=== PATIENT | male | born 1980 | race Caucasian/White ===

== ENCOUNTER 2016-12-08 22:18 | Inpatient (IN) ==
--- NOTE | 2016-12-08 22:32 | ED EKG INTERP ---
EKG Interpretation - EKG Time of EKG reading by physician:: 22:23 EKG Read and Signed by:: Randall Everett EKG Interpretation (*Must complete 3 of following elements*): Abnormal ( Incomplete RBBB) Rate: 118 Rhythm: Sinus tachycardia Attestation - Scribe Verification/Attestation Scribe:: Davis Calderon Acting as Scribe for:: Randall Everett Scribe documention review:: This chart was documented by a scribe and accurately reflects the service the provider performed and the decisions made by the provider.
[2016-12-08] MEDS ORDERED: ATIVAN IV ONE (22:45)
[2016-12-08] MEDS ORDERED: LOPRESSOR IV ONE (22:45)
[2016-12-08] MEDS ORDERED: LASIX IV ONE ×2 (22:45→22:46)
[2016-12-08] MEDS ORDERED: LABETALOL IV ONE (22:58)
[2016-12-08 23:01] LABS: MANUAL DIFF NEEDED? NO
[2016-12-08 23:04] LABS: BASO% 0.4 % (0.0-0.8); EOS# 0.46 X1000 (0.0-0.7); EOS% 2.7 % (0.0-10.0); HEMOGLOBIN 15.1 g/dL (14.0-18.0); IMM GRAN# 0.07 X1000 (0.0-0.04); IMM GRAN% 0.4 % (0.0-0.5); LYMPH# 6.38 X1000 (1.2-3.4); LYMPH% 37.4 % (20.5-51.1); MCH 28.8 PG (27-31); MCHC 34.3 g/dL (33-37); MPV 10.4 FL (7.4-10.4); NEUT% 52.1 % (42.2-75.2); PLT 338 X1000 (130-400); RBC 5.24 XMIL (4.7-6.1)
--- NOTE | 2016-12-08 23:09 | PROVIDER DOCUMENTATION ---
HPI-Chest Pain - General Chief Complaint: Shortness of Breath Stated Complaint: "TROUBLE BREATHING" Time Seen by Provider: 12/08/16 22:32 Source: patient Allergies/Adverse Reactions: Patient Allergies Allergy/AdvReac Type Severity Reaction Status Date / Time amoxicillin Allergy Mild HIVES Verified 12/08/16 23:30 levofloxacin [From Levaquin] Allergy Mild HIVES Verified 12/08/16 23:30 clarithromycin AdvReac Severe VOMITING Verified 12/08/16 23:30 Home Medications: Home Medication List Medication Instructions Recorded Confirmed Last Taken Type Lisinopril 10 mg PO DAILY #30 tablet 11/25/15 12/08/16 12/15/15 06:00 Rx Metformin [Glucophage] 500 mg PO BID #60 tablet 11/25/15 12/08/16 12/14/15 21: 00 Rx - History of Present Illness-CP Nature of Presenting Problem: Pt is a 36 yom who presents to ER with CC of shortness of breath and chest pain. Pt reports that he had has his chest pain x3 days and his sob since this am. Pt reports that his chest pain is on his L side and radiates down his arm. On exam, pt has intentional tremors and is hyperventilating. Pt reports he has hx of "severe panic attacks," HTN, diabetes, neuropathy, seizures, polyps, had a light RI last year, and a CVA (L side paralysis; no sensory deficits). Location: reports: other (L side) Chest Pain Radiation: reports: arms (L) Quality of Pain: reports: tightness Severity in ED: moderate Onset/Duration: 3 days ago Timing: still present, getting worse Associated Symptoms: reports: shortness of breath. denies: abdominal pain, back pain, diaphoresis, dizziness, edema, fatigue, heartburn, nausea, swelling/ lump in chest, syncope, vomiting, weakness Nitro Today/Relief: no nitro taken today Aspirin Treatment Today: no aspirin today Review of Systems - Adult - REVIEW OF SYSTEMS - ADULT Constitutional: denies: chills, fever, fatique, night sweats, weight gain, weight loss Eyes: reports: no symptoms reported Ears, Nose, Mouth & Throat: reports: no symptoms reported Cardiovascular: reports: chest pain. denies: edema, heart murmur, irregular heart rate, orthopnea, palpitations, poor circulation, PND, syncope Respiratory: reports: shortness of breath. denies: chronic cough, cough, dyspnea on exertion, excessive sputum production, hemoptysis, pleurisy, wheezing Gastrointestinal: reports: no symptoms reported Genitourinary: reports: no symptoms reported Musculoskeletal: reports: no symptoms reported Integumentary: reports: no symptoms reported Neurological: reports: numbness (L arm), tremors (intentional). denies: ataxia , dizziness/vertigo, headache/migraines, loss of balance, paresthesia, seizure, slurred speech, syncope Psychiatric: reports: anxiety, panic attacks. denies: anti-depressant use, alcohol/drug dependence, depression, emotional problems, insomnia, suicidal thoughts Endocrine: reports: no symptoms reported Hematologic/Lymphatic: reports: no symptoms reported Allergic/Immunologic: reports: no symptoms reported All Other Systems: Reviewed and Negative Past History - Adult - PAST MEDICAL HISTORY-ADULT Review of Records: reports: Nursing Assessment Review, Medications Reviewed Cardiovascular: reports: HTN, hyperlipidemia, other ("hole in back of heart") Respiratory: reports: sleep apnea Gastrointestinal: reports: ulcer Genitourinary: reports: kidney stones Neurological: reports: other (SZ when is stressed) Psychiatric: reports: anxiety, depression Endocrine/Immune: reports: Diabetes - PRIOR SURGERIES/PROCEDURES Surgical/Procedure History: reports: hernia repair, orthopedic (extremity) - PRIOR HOSPITALIZATIONS Prior Hospitalizations: reports: for similar symptoms - IMMUNIZATION STATUS Childhood Immunizations: See Nurse Assessment Flu Vaccine: See Nurse Assessment Physical Exam-General - PHYSICAL EXAM-ADULT Initial Vital Signs Reviewed: Yes - CONSTITUTIONAL General Appearance: appears well, alert, moderate distress, obese, anxious. negative: no apparent distress, mild distress - RESPIRATORY Respiratory: chest non-tender, lungs clear, normal breath sounds, no pleuratic chest pain, no respiratory distress, no accessory muscle use. negative: respiratory distress, decreased breath sounds, accessory muscle use, wheezing - CARDIOVASCULAR Cardiovascular: normal peripheral pulses, regular rate, rhythm. negative: bradycardia, tachycardia, irregularly irregular - CHEST (BREASTS) Chest/Breast: no masses/lumps, no tenderness. negative: nipple discharge, tenderness, mass/lump noted - GASTROINTESTINAL (ABDOMEN) Abdominal Exam: normal bowel sounds, non tender, soft. negative: abnormal bowel sounds, distended, tenderness, mass - MUSCULOSKELETAL Back Exam: no CVA tenderness, no vertebral tenderness. negative: CVA tenderness , decreased range of motion, muscle spasm, swelling, vertebral tenderness Extremity: normal range of motion, non-tender, normal gait. negative: deformity , erythema, inflammation, pedal edema, swelling, tenderness - NEUROLOGIC Neurologic: grossly normal, no motor/sensory deficits. negative: facial droop, focal weakness, motor weakness, sensory deficit - PSYCHIATRIC Psych/Mental Status: normal thought content, normal thought process, oriented x 3, anxious, disheveled. negative: normal mood/affect, disoriented x 3, depressed affect, paranoid, tearful Progress - PLAN OF CARE/RESULTS Progress/Plan/Lab Results: Vital Signs - 24 hr 12/08/16 12/08/16 12/08/16 22:26 23:28 23:35 Temperature 98.1 F Pulse Rate 118 H 107 H 93 H Respiratory 20 22 20 Rate Blood Pressure 228/124 206/126 193/113 O2 Sat by Pulse 100 100 97 Oximetry Orders Category Date Time Status Cardiac Monitoring DIRECTED Care 12/08/16 22:32 Active Saline Loc NOW Care 12/08/16 22:32 Active CHEST-1 VIEW [RAD] Stat Exams 12/08/16 22:32 Taken BLOOD CULTURE [BLDCUL] Stat Lab 12/08/16 23:47 Ordered CBC WITH ELECTRONIC DIFF [HEME] Stat Lab 12/08/16 22:40 Completed CK PROFILE [SP CHEM] Stat Lab 12/08/16 22:40 Completed COMPREHENSIVE METABOLIC PANEL [CHEM] Stat Lab 12/08/16 22:40 Completed LACTATE, PLASMA [CHEM] Stat Lab 12/08/16 23:47 Uncollected MAGNESIUM [CHEM] Stat Lab 12/08/16 22:40 Completed PRO B-NATRIURETIC PEPTIDE Stat Lab 12/08/16 22:40 Completed PROTIME WITH INR [COAG] Stat Lab 12/08/16 22:40 Completed PTT [COAG] Stat Lab 12/08/16 22:40 Completed TROPONIN T Stat Lab 12/08/16 22:40 Completed Amlodipine [Norvasc] Med 12/08/16 23:47 Discontinued 10 mg PO NOW ONE CefTRIAXONE 1 GM/NS [Rocephin 1 gm/Ns] 50 ml Med 12/08/16 23:47 Discontinued IV NOW Furosemide [Lasix] Med 12/08/16 22:46 Discontinued 20 mg IV NOW ONE Furosemide [Lasix] Med 12/08/16 22:45 Discontinued 40 mg IV NOW ONE LISINOpril [Prinivil] Med 12/08/16 23:47 Discontinued 10 mg PO NOW ONE Labetalol Med 12/08/16 22:58 Discontinued 20 mg IV NOW ONE Lorazepam [Ativan] Med 12/08/16 22:45 Discontinued 1 mg IV NOW ONE Metoprolol [Lopressor] Med 12/08/16 22:45 Discontinued 5 mg IV NOW ONE EKG [EKG] Stat Ther 12/08/16 22:20 Ordered EKG [EKG] Stat Ther 12/08/16 22:32 Ordered Laboratory Tests 12/08/16 12/08/16 12/08/16 22:40 22:40 22:40 WBC 17.05 H RBC 5.24 Hgb 15.1 Hct 44.0 MCV 84.0 MCH 28.8 MCHC 34.3 RDW Std Deviation 13.0 Plt Count 338 MPV 10.4 Immature Gran % (Auto) 0.4 Neut % (Auto) 52.1 Lymph % (Auto) 37.4 Menard % (Auto) 7.0 Eos % (Auto) 2.7 Baso % (Auto) 0.4 Immature Gran # (Auto) 0.07 H Neut # (Auto) 8.87 H Lymph # (Auto) 6.38 H Menard # (Auto) 1.20 H Eos # (Auto) 0.46 Baso # (Auto) 0.07 PT INR PTT (Actin FS) Sodium 138 Potassium 3.5 Chloride 98 Carbon Dioxide 25 Anion Gap 15 BUN 11 Creatinine 1.1 Estimated GFR/1.73 m2 > 60 BUN/Creatinine Ratio 10 Glucose 231 H Calculated Osmolality 282 Calcium 9.1 Magnesium 1.7 Total Bilirubin 0.32 AST 23 ALT 47 H Alkaline Phosphatase 128 H Creatine Kinase 237 H Creatine Kinase Index 1.5 CK-MB (CK-2) 3.48 Troponin T Pls-F-Qitnnnisqkx Pept 16 Total Protein 8.0 Albumin 4.0 Globulin 4.0 Albumin/Globulin Ratio 1.0 12/08/16 12/08/16 22:40 22:40 WBC RBC Hgb Hct MCV MCH MCHC RDW Std Deviation Plt Count MPV Immature Gran % (Auto) Neut % (Auto) Lymph % (Auto) Menard % (Auto) Eos % (Auto) Baso % (Auto) Immature Gran # (Auto) Neut # (Auto) Lymph # (Auto) Menard # (Auto) Eos # (Auto) Baso # (Auto) PT 9.9 INR 0.97 PTT (Actin FS) 22.2 Sodium Potassium Chloride Carbon Dioxide Anion Gap BUN Creatinine Estimated GFR/1.73 m2 BUN/Creatinine Ratio Glucose Calculated Osmolality Calcium Magnesium Total Bilirubin AST ALT Alkaline Phosphatase Creatine Kinase Creatine Kinase Index CK-MB (CK-2) Troponin T < 0.010 Meu-A-Osywbiyqbnq Pept Total Protein Albumin Globulin Albumin/Globulin Ratio - XRAY 1 XRAY: Bilateral XRAY Study: Chest (Increased interstitial markings) Impression: See EMR Report XRAY Interpretation: See report - CONSULTS/PCP/HOSPITALIST Notification #1 *Consult/PCP/Hospitalist*: Dr. Lujan (Hospitalist) Time Discussed: 02:00 Consult Disposition: Admit Departure - Departure Time of Disposition Order: 01:59 DIAGNOSIS: Shortness of breath, Hypertensive urgency Disposition: ADMITTED INPATIENT 09 Certified Medical Emergency: Emergent Condition: Stable Additional Instructions: ED Follow Up Instructions: You have been treated by a care provider in the Emergency Department. These instructions are being provided to you so you can have an understanding of how to care for yourself upon discharge. Upon discharge from the Emergency Department, you are responsible for making arrangements for follow-up care by a physician of your choice. Take all prescribed medications as directed. Return to the Emergency Department immediately for any new or worsening symptoms. You may call the Physician Referral phone number at [phone] to obtain a list of Physicians who are taking new patients. Referrals: None,PCP [Primary Care Provider] - Attestation - Scribe Verification/Attestation Scribe:: Davis Calderon Acting as Scribe for:: Randall Everett Scribe documention review:: This chart was documented by a scribe and accurately reflects the service the provider performed and the decisions made by the provider.
[2016-12-08 23:28] LABS: AGAP 15; ALKALINE PHOSPHATASE 128 U/L (32-122); BUN 11 mg/dL (8-22); CALCIUM 9.1 mg/dL (8.8-10.2); CHLORIDE 98 mmol/L (98-107); COSMO 282; GOT 23 U/L (10-34); GPT 47 U/L (10-44); MAGNESIUM 1.7 mg/dL (1.5-2.7); POTASSIUM 3.5 mmol/L (3.5-5.1); SODIUM 138 mmol/L (136-145); TCO2 25 mmol/L (25-35); TOTAL BILIRUBIN 0.32 mg/dL (0.20-1.00)
[2016-12-08 23:40] LABS: CK PROFILE 237 U/L (24-204)
[2016-12-08 23:46] LABS: PROTIME 9.9 Seconds (9.2-11.7); PTT 22.2 Seconds (22.0-36.0)
[2016-12-08 23:47] LABS: INR 0.97
[2016-12-08] MEDS ORDERED: PRINIVIL PO ONE (23:47)
[2016-12-08] MEDS ORDERED: NORVASC PO ONE (23:47)
[2016-12-08] MEDS ORDERED: ROCEPHIN 1 GM/NS 50 ML IV ONE (23:47)
[2016-12-09 00:21] LABS: CK INDEX 1.5 (0.0-2.5); CK-MB 3.48 ng/mL (0.0-5.0)
[2016-12-09] MEDS ORDERED: NORVASC ONE (02:05)
[2016-12-09] MEDS ORDERED: ATIVAN IV ONE (02:49)
[2016-12-09] MEDS ORDERED: CATAPRES PO ONE (02:49)
[2016-12-09] MEDS ORDERED: TYLENOL PO PRN (05:55)
[2016-12-09] MEDS ORDERED: VASOTEC IV PRN (05:55)
[2016-12-09] MEDS ORDERED: ZOFRAN IV PRN (05:55)
[2016-12-09] MEDS: HUMULIN R SUBQ SCH ×4 (07:00→20:55)
--- NOTE | 2016-12-09 08:08 | HISTORY AND PHYSICAL ---
CHIEF COMPLAINT: Chest pain. HISTORY OF PRESENTING ILLNESS: A 36-year-old male with a history of coronary artery disease, diabetes mellitus type 2, hypertension, GERD, who presented to the emergency department with 3 days history of having intermittent chest pain and shortness of breath. He described the chest pain as pressure-like with radiation to his left arm. He states the symptoms were worsening and, subsequently, he had come to the emergency department. In the ER, he was evaluated and due to his presenting symptoms, it was thought that he would need hospitalization for further management. At the time of my examination, he denied any headache, vision changes, nausea, vomiting, diarrhea, hemoptysis, melena, or weight changes, but complained of chest pain and shortness of breath. PAST MEDICAL HISTORY: Coronary artery disease, CVA, diabetes mellitus type 2, hypertension, GERD. PAST SURGICAL HISTORY: Left knee surgery. Right shoulder surgery. ALLERGIES: Amoxicillin, levofloxacin, clarithromycin. CURRENT MEDICATIONS: As listed in MAR. SOCIAL HISTORY: He denies any history of smoking, alcohol, or illicit drug use. FAMILY HISTORY: Positive for coronary artery disease in mother. REVIEW OF SYSTEMS: Twelve-point review of systems listed as in HPI. Other systems negative. PHYSICAL EXAMINATION: GENERAL: Cooperative, friendly male. He is resting comfortably now. VITAL SIGNS: Temperature 98.1 degrees, pulse 118, respirations 20, blood pressure 206/126. HEENT: Atraumatic, normocephalic. Extraocular movements intact. PERRLA. NECK: Supple. CHEST: Clear to auscultation. CARDIOVASCULAR: Regular rate and rhythm. ABDOMEN: Soft. Positive bowel sounds. EXTREMITIES: No edema. NEUROLOGIC: He is awake, alert, oriented x3. GENITOURINARY: No bladder distention. SKIN: Warm. LABORATORIES AND STUDIES: WBC 17.05. Hemoglobin 15.1, hematocrit 44.0, platelets 338,000. Sodium 138, potassium 3.5, chloride 98, CO2 is 25. BUN is 11, creatinine is 1.1, glucose is 231. ALT is 47. Alkaline phosphatase is 128. Creatine kinase is 237. ASSESSMENT: A 36-year-old male with a history of coronary artery disease, diabetes mellitus type 2, hypertension, and gastroesophageal reflux disease presented to the emergency department with 3 days history of having chest pain. We will place patient for observation for further evaluation and management. 1. Chest pain. 2. Hypertension, uncontrolled. 3. GERD. 4. Leukocytosis. 5. Abnormal LFTs. PLAN: 1. We will admit the patient to medical floor with telemetry. 2. Continue cardiac workup. Check EKG, serial cardiac enzymes. Have patient continue on aspirin. Will use sublingual nitroglycerin and morphine p.r.n. chest pain. 3. We will monitor blood pressure closely and resume antihypertensive agents. 4. We will start patient on PPI. 5. Check blood cultures. Start patient on empiric antibiotics. 6. We will check an abdominal ultrasound and check a hepatitis profile. 7. We will put patient on DVT prophylaxis with SCDs. 8. We will continue to follow and reassess.
[2016-12-09] MEDS: PRILOSEC PO SCH (08:58)
[2016-12-09] MEDS: ASPIRIN PO SCH (09:03)
[2016-12-09 09:22] LABS: MANUAL DIFF NEEDED? NO
[2016-12-09 09:42] LABS: AGAP 13; ALBUMIN 3.7 g/dL (3.5-5.0); ALKALINE PHOSPHATASE 95 U/L (32-122); BUN 12 mg/dL (8-22); CALCIUM 9.2 mg/dL (8.8-10.2); CHLORIDE 95 mmol/L (98-107); COSMO 277; GOT 20 U/L (10-34); GPT 36 U/L (10-44); POTASSIUM 3.5 mmol/L (3.5-5.1); SODIUM 136 mmol/L (136-145); TCO2 28 mmol/L (25-35); TOTAL BILIRUBIN 0.53 mg/dL (0.20-1.00); TOTAL PROTEIN 7.1 g/dL (6.3-8.3)
[2016-12-09 09:52] LABS: BASO% 0.4 % (0.0-0.8); HEMATOCRIT 40.4 % (42.0-52.0); HEMOGLOBIN 13.7 g/dL (14.0-18.0); IMM GRAN# 0.04 X1000 (0.0-0.04); IMM GRAN% 0.3 % (0.0-0.5); LYMPH% 25.9 % (20.5-51.1); MCH 28.7 PG (27-31); MCHC 33.9 g/dL (33-37); MCV 84.5 FL (81-99); MONO# 1.14 X1000 (0.11-0.59); MONO% 7.6 % (1.7-9.3); MPV 10.5 FL (7.4-10.4); NEUT% 63.8 % (42.2-75.2); PLT 340 X1000 (130-400); RBC 4.78 XMIL (4.7-6.1)
--- NOTE | 2016-12-09 10:00 | Diag Imaging Result Document ---
PROCEDURE NAME: US ABDOMEN-COMPLETE - 12/09/2016 ULTRASOUND ABDOMEN: COMPARISON: Compared with ultrasound of the gallbladder 12/15/2015. FINDINGS: The gallbladder is visualized and demonstrates no abnormalities. There is no evidence of gallstones. The common bile duct is normal caliber at 4 mm. The liver is diffusely echodense compatible with fatty infiltration. There is no focal liver lesion identified. Doppler image shows hepatopetal flow signal in the portal vein. The spleen appears within normal limits in size. There is no ascites seen. Visualized portions of the pancreas are unremarkable. There are no substantial abnormalities of the bilateral kidneys identified. The proximal aorta and IVC are obscured by artifacts. The mid and distal aorta appear normal caliber. IMPRESSION: 1. No visible gallbladder abnormality. No evidence of gallstones. Normal caliber common bile duct at 4 mm. 2. Fatty infiltration of the liver.
--- NOTE | 2016-12-09 12:49 | Diag Imaging Result Document ---
PROCEDURE NAME: CHEST-1 VIEW - 12/08/2016 PORTABLE CHEST: COMPARISON: 11/25/2015. FINDINGS: Heart size appears within normal limits. Inspiration is mildly shallow. The lungs appear clear. There is no substantial pleural effusion or pneumothorax identified. IMPRESSION: Mildly shallow inspiration. No other evidence of acute disease.
--- NOTE | 2016-12-09 16:18 | ECHO REPORT ---
ORDER DATE: 12/09/2016 INDICATION FOR THE STUDY: Chest pain. FINDINGS: 1. This is an extremely difficult study. The patient is 5 foot 10 and weighs 280 pounds making resolution of the endocardial borders extremely difficult. 2. Right atrium is normal size at 3.7 cm. 3. Trace tricuspid regurgitation. 4. Normal RV size and systolic function. 5. Trace pulmonic insufficiency. 6. Normal left atrial size at 3.7. 7. No mitral valve prolapse. Trace mitral regurgitation. No evidence of mitral stenosis. 8. Normal LV size, end-diastolic dimension of 5.2. Normal wall thicknesses with a posterior and interventricular septal wall thickness 1.1 cm each. Hyperdynamic LV systolic function. Estimated EF is greater than 70%. 9. Aortic valve opens well. No evidence of stenosis or insufficiency. 10. Aorta appears normal visualized segments. 11. No pericardial effusion identified.
[2016-12-09] MEDS: ROCEPHIN 1 GM/NS 50 ML IV SCH (20:54)
[2016-12-10 06:30] LABS: MANUAL DIFF NEEDED? NO
[2016-12-10 06:34] LABS: BASO% 0.3 % (0.0-0.8); EOS% 2.8 % (0.0-10.0); HEMATOCRIT 41.5 % (42.0-52.0); HEMOGLOBIN 13.8 g/dL (14.0-18.0); IMM GRAN# 0.05 X1000 (0.0-0.04); IMM GRAN% 0.3 % (0.0-0.5); LYMPH# 4.47 X1000 (1.2-3.4); LYMPH% 31.1 % (20.5-51.1); MCH 28.3 PG (27-31); MCHC 33.3 g/dL (33-37); MONO# 1.11 X1000 (0.11-0.59); MONO% 7.7 % (1.7-9.3); MPV 10.1 FL (7.4-10.4); NEUT% 57.8 % (42.2-75.2); PLT 336 X1000 (130-400); RBC 4.88 XMIL (4.7-6.1)
[2016-12-10] MEDS: PRILOSEC PO SCH (06:44)
[2016-12-10] MEDS: HUMULIN R SUBQ SCH ×4 (06:45→21:27)
[2016-12-10 06:50] LABS: AGAP 12; ALBUMIN 3.3 g/dL (3.5-5.0); ALKALINE PHOSPHATASE 92 U/L (32-122); BUN 16 mg/dL (8-22); CALCIUM 8.6 mg/dL (8.8-10.2); CHLORIDE 98 mmol/L (98-107); COSMO 276; GOT 21 U/L (10-34); GPT 39 U/L (10-44); HDL 29 mg/dL (35-55); LDL 93 mg/dL; POTASSIUM 3.5 mmol/L (3.5-5.1); SODIUM 136 mmol/L (136-145); TCO2 26 mmol/L (25-35); TOTAL BILIRUBIN 0.65 mg/dL (0.20-1.00); TRIGLYCERIDES 162 mg/dL (39-160); VLDL 32 mg/dL
[2016-12-10] MEDS: ASPIRIN PO SCH (11:38)
[2016-12-10] MEDS ORDERED: MORPHINE IV PRN (11:45)
[2016-12-10] MEDS: SODIUM CHLORIDE 0.9% INJ SCH (14:42)
[2016-12-10] MEDS: PROTONIX IV SCH (14:42)
--- NOTE | 2016-12-10 15:48 | PROGRESS NOTE ---
DATE: 12/10/2016 SUBJECTIVE: This patient states that he is feeling better. He is complaining of mild epigastric pain, no nausea, no vomiting. No diarrhea. No constipation. No fever. No chills. No chest pain today. OBJECTIVE: Vital Signs: Temperature 98.2 degrees, pulse 77, respiratory rate 20, blood pressure 145/100. Oxygen saturation 98% on room air. HEENT: Head normocephalic. No trauma. PERRLA. Neck: Supple. No JVD. No masses. Central trachea. Chest: Clear to auscultation. No wheezing. No rales. Cardiovascular: Regular rhythm and rate. No murmurs. Abdomen: Soft, protuberant, obese, mild tenderness to palpation in the epigastric area. Nondistended. Positive bowel sounds. Extremities: No edema. No clubbing. No cyanosis. Neurological: The patient is alert and oriented x3. No focal neurological deficits. LABORATORY: WBC 14.3, hemoglobin 13.8, hematocrit 41.5, platelets 336,000. Sodium 136, potassium 3.5, chloride 98, bicarbonate 26, BUN 16, creatinine 0.8, Glucose 142, calcium 8.6. Troponins negative x2. Albumin 3.3. ASSESSMENT AND PLAN: 1. Chest pain, as per the patient, he has a strong family member of stroke/coronary artery disease, apparently his dad before the age of 50 and his brother at the age of 21, apparently with an acute coronary syndrome. As per the patient also, he had a stroke before so I am wondering if this patient has some kind of hypercoagulability state. For now, and stress test in is pending probably will probably is not is going to be done tomorrow/ depending on the results depending on the results we will consult Cardiology Department. 2. Hypertension. I will continue with the same medication for now. He is stable. 3. Gastroesophageal reflux disease. Continue with proton pump inhibitor. 4. Leukocytosis. He does not have any signs of infection. We will continue to monitor. 5. Abnormal liver function tests. They are normal today, will continue to monitor complete metabolic panel. 6. Questionable hypercoagulability state. Probably this patient will need to follow up with hematology oncology as an outpatient. 7. History of cerebrovascular accident. Aware.
[2016-12-10] MEDS: ROCEPHIN 1 GM/NS 50 ML IV SCH (21:27)
[2016-12-11] MEDS: HUMULIN R SUBQ SCH ×4 (06:02→23:12)
[2016-12-11 07:03] LABS: MANUAL DIFF NEEDED? NO
[2016-12-11 07:19] LABS: BASO% 0.3 % (0.0-0.8); EOS# 0.45 X1000 (0.0-0.7); EOS% 3.2 % (0.0-10.0); HEMATOCRIT 41.4 % (42.0-52.0); HEMOGLOBIN 13.9 g/dL (14.0-18.0); IMM GRAN# 0.03 X1000 (0.0-0.04); IMM GRAN% 0.2 % (0.0-0.5); LYMPH# 4.51 X1000 (1.2-3.4); LYMPH% 32.3 % (20.5-51.1); MCH 28.7 PG (27-31); MCHC 33.6 g/dL (33-37); MCV 85.5 FL (81-99); MONO% 7.9 % (1.7-9.3); MPV 10.5 FL (7.4-10.4); NEUT% 56.1 % (42.2-75.2); PLT 313 X1000 (130-400); RBC 4.84 XMIL (4.7-6.1)
[2016-12-11 07:52] LABS: AGAP 10; BUN 14 mg/dL (8-22); CALCIUM 8.5 mg/dL (8.8-10.2); CHLORIDE 99 mmol/L (98-107); COSMO 275; SODIUM 136 mmol/L (136-145); TCO2 27 mmol/L (25-35)
[2016-12-11] MEDS ORDERED: LEXISCAN ONE (09:05)
--- NOTE | 2016-12-11 10:49 | EKG Report ---
Test Performed on : 12/08/2016 10:23:52 PM Test Reason : sob Blood Pressure : / mmHG Vent. Rate : 118 BPM Atrial Rate : 118 BPM P-R Int : 162 ms QRS Dur : 110 ms QT Int : 324 ms P-R-T Axes : 036 052 027 degrees QTc Int : 454 ms Sinus tachycardia. Incomplete right bundle branch block Borderline ECG When compared with ECG of 21-NOV-2015 01:32, No significant change was found Unconfirmed Result
[2016-12-11] MEDS: ASPIRIN PO SCH (11:26)
[2016-12-11] MEDS: SODIUM CHLORIDE 0.9% INJ SCH (11:56)
[2016-12-11] MEDS: PROTONIX IV SCH (11:56)
[2016-12-11] MEDS ORDERED: MILK OF MAGNESIA PO ONE (17:20)
--- NOTE | 2016-12-11 21:11 | PROGRESS NOTE ---
DATE: 12/11/2016 SUBJECTIVE: This is a 36-year-old with a reported history of coronary artery disease, diabetes mellitus type 2, hypertension, gastroesophageal reflux disease. He went to the emergency department with a 3-day history of having intermittent chest pain and shortness of breath. He described chest pain pressure-like with radiation to the left arm. He states his symptoms were worsening and he subsequently came to the emergency department. The emergency room evaluated his presenting symptoms and thought that we needed to rule out angina. Once again, we go back to his history. He never had a heart catheterization. He has never had an incident where he thought he had a heart attack but he said that he read a note from [place] that stated he had but he was never told he had it, so a very confusing history. He also reports a CVA but he does have a strong family history apparently in his brother, dad and uncles so I think we are obligated to look for underlying coronary artery disease. His history of pain is not really pressure, it is more sharp. He does have symptoms of anxiety including panic attacks. He has a history of diabetes mellitus type 2 which he admits is poorly controlled and blood pressure was elevated. He says he gets cramping in his hands. He does not have a doctor. He says he cannot afford a doctor. He has had multiple ER visits over the last couple of years but no followup. OBJECTIVE: Vital Signs: On examination, he is afebrile, pulse 100, respirations 18, blood pressure 169/77. Pupils are equal and round. CVP less than 6 cm. Lungs: Clear in all lung donovan. Cardiovascular Examination: Regular rhythm and rate without murmur or S3. Blood sugars 210/127/167. LABS: Yesterday when he came in his white count was mildly elevated at 15,000, today it is 13,970, hematocrit 41, platelet count 313,000. Blood sugar has been 210/127/167. ASSESSMENT AND PLAN: He had an echocardiogram on the which was pretty unremarkable. Left ventricular function appears to be normal, mild concentric hypertrophy but basically normal wall thickness and no valvular dysfunction. His abdominal ultrasound shows no visible gallbladder abnormality, no evidence gallstones, fatty infiltration of the liver. ASSESSMENT AND PLAN: 1. Chest pain which is atypical. Cardiac enzymes unremarkable. He had nonspecific elevation of his white blood cell count but no clinical report of significant infection. Blood sugars have been fairly well-maintained. He had a myocardial stress test perfusion scan today and await the results. Because of his history and questionable history on both his stroke and his heart attack, I will ask Cardiology to evaluate and see if they see any evidence that he has significant ischemia. I think if truly this man has had a heart attack, we need to define the coronary anatomy. While there is no evidence of a sequelae, then I think we can give him reassurance and let him go home. 2. Review of the orders are unremarkable. No changes. Protonix 40 mg IV q.24 hours, Rocephin. 3. Microbiology is no growth on blood cultures. I do not see any source of infection. I will stop his Rocephin. 4. He does complain of constipation. We will give him some Milk of Magnesia and Dulcolax if he would like.
--- NOTE | 2016-12-11 22:02 | Diag Imaging Result Document ---
PROCEDURE NAME: MYOCARDIAL PERF SCAN, STR/REST - 12/11/2016 REQUESTING PHYSICIAN: Dr. Tai Cabrera. SUMMARY: The patient was administered 15.5 millicuries of technetium-99m sestamibi after which resting cardiac images were obtained. Patient was subsequently stressed using a walking Lexiscan protocol. On administration Lexiscan the patient was ambulated on a treadmill and heart rate increased from 86 beats per minute to 109 beats per minute while blood pressure went from 124/60 to 152/96. With Lexiscan the patient denied chest discomfort. Following administration of Lexiscan the patient was administered 44.9 millicuries of technetium-99m sestamibi after which gated stress cardiac images were obtained. Baseline ECG demonstrates sinus rhythm and was within normal limits. With stress there were no diagnostic ST-segment changes. SPECT images were reconstructed in the short, horizontal, vertical long axis. Review of these images demonstrated no scintigraphic evidence of inducible myocardial ischemia or infarct. Gated images demonstrate calculated left ventricular ejection fraction of 70% with symmetrical lung mass/thickening. CONCLUSIONS: 1. Adequate response to Lexiscan. 2. Clinically negative for chest pain. 3. Electrocardiographically negative for exercise-induced myocardial ischemia. 4. Lexiscan sestamibi induced demonstrate no scintigraphic evidence of inducible myocardial ischemia. Normal left ventricular systolic function demonstrated.
[2016-12-11] MEDS: DULCOLAX PR ONE (23:08)
[2016-12-12] MEDS: HUMULIN R SUBQ SCH ×2 (06:25→10:37)
[2016-12-12] MEDS: ASPIRIN PO SCH (08:32)
[2016-12-12] MEDS: PROTONIX IV SCH ×2 (10:40→13:49)
[2016-12-12 11:29] VITALS: BP 141/73
[2016-12-12] MEDS ORDERED: PRINIVIL PO SCH (13:45)
--- NOTE | 2016-12-12 14:16 | CONSULTATION ---
DATE OF CONSULTATION: 12/12/2016 HISTORY OF PRESENT ILLNESS: A 36-year-old gentleman with history of diabetes, hypertension was seen today. He has been noncompliant with his medications and he says for the last 4-5 days he has been off his blood pressure medications. Normally his blood pressure runs anywhere from 160 to 100 to 120 diastolic. When he came to the emergency room his blood pressure was elevated, was 206/126. He also has anxiety disorder. He has been having intermittent episodes of chest pain and shortness of breath when he came to the emergency room. There is no associated palpitations or dizziness or syncope. He describes his chest pain as a pressure-like sensation. He does not smoke. He chews tobacco. There is no history of alcohol abuse. REVIEW OF SYSTEMS: A 14-point review of system was done. GI: There is no history of nausea, vomiting, diarrhea. There is no history of hematemesis or melena. Central nervous system: No focal weakness to suggest CVA, TIA. : There is no dysuria or hematuria. PAST MEDICAL HISTORY: 1. Hypertension. 2. Diabetes. 3. Gastroesophageal reflux disease. 4. Medical noncompliance. PHYSICAL EXAMINATION: Vital Signs: Blood pressure when he came was 210/120, at the time of my examination blood pressure was 143/70. Cardiovascular System: Normal jugular venous pressure. There is no thyromegaly, there is no carotid bruit. First and second heart sounds were heard. There is no S3 gallop. Respiratory: System normal air entry. There is no crepitations or rhonchi. Abdomen: Was obese soft, nontender. There was no guarding or rigidity. Bowel sounds were heard. Central nervous system: Alert, oriented, was moving all 4 extremities. Extremities: Examination of extremities revealed no pedal edema. HEENT: Atraumatic, normocephalic. Pupils were equal and reacting to light. DATA: He was ruled out for myocardial infarction by cardiac enzymes. His echocardiogram revealed ejection fraction of 70%. There was no significant valvular abnormality. He had a Cardiolite stress test as well during this admission which revealed no evidence of ischemia. Normal left ventricular systolic function. ASSESSMENT AND PLAN: 1. Mr. Abdulaziz Elias is a 36-year-old gentleman who chews tobacco, has history of hypertension, diabetes, has been noncompliant with his medications. Recorded elevated blood pressures at home. He has not been taking his medications on account of cost. I had a detailed discussion with him. I think his chest pains are secondary to his accelerated hypertension and would recommend increasing his lisinopril to 20 mg a day for blood pressure control and take the medications regularly. 2. For diabetes he is on metformin. Would recommend continuing metformin. 3. As far as his chest pains are concerned, he has been ruled out for myocardial infarction by cardiac enzymes and his Cardiolite stress test was normal with normal left ventricular systolic function by echocardiogram. Would continue medical management.
[2016-12-12] MEDS ORDERED: PNEUMOVAX 23 IM ONE (14:45)
[2016-12-12 15:22] LABS: HEPATITIS PROFILE ACUTE SEE COMMENTS (())
--- NOTE | 2016-12-12 21:00 | DISCHARGE SUMMARY ---
ADMISSION DATE: 12/09/2016 DISCHARGE DATE: 12/12/2016 CHIEF COMPLAINT: This is a 36-year-old with history of coronary artery disease, diabetes mellitus type 2, hypertension, gastroesophageal reflux disease who came to the emergency department on 12/09/2016 with a 3-day history of having intermittent chest pain and shortness of breath. He feels like it is a deep pain. He does not really describe this as pressure or dullness. It is not really sharp. He does admit he has had some panic attacks and he is not sure if it is associated. He described chest pain as sometimes pressure-like radiating to his left arm. Symptoms are worsening over the last couple of weeks. Subsequently he came to the emergency room. In the emergency room he was evaluated. Due to his presenting symptoms he would need to be admitted to rule out unstable angina. PAST MEDICAL HISTORY: Coronary artery disease, CVA, diabetes mellitus type 2, hypertension, gastroesophageal reflux disease. PAST SURGICAL HISTORY: Left knee surgery. Right shoulder surgery. ALLERGIES: Amoxicillin, levofloxacin, clarithromycin. HOSPITAL COURSE: Patient had negative enzymes. Serial EKGs were unremarkable. He had an echocardiogram done on 12/09/[address] Hassan which was really unremarkable, with good left ventricular function. He reports a history, thinking that he has had a myocardial infarction. He also reports a history that he thinks he had a stroke with left-sided deficit. I do not have any definitive records on that. He has no neurologic deficits. My suspicion in what he is describing is that I am not sure if he had a true motor deficit on the left side. At any rate there is certainly no evidence that he had a myocardial infarction. We did a myocardial perfusion scan on 12/11/2016. He had an adequate response to Lexiscan, negative scan for chest pain, electrographically negative for exercise-induced myocardial ischemia. Lexiscan sestamibi induced demonstrates no scintigraphic evidence of inducible myocardial ischemia. Normal left ventricular function. I tried to reassure him that I do not see any evidence of active ischemia. He does have a strong family history. His brother apparently has a history of coronary artery disease and I think in his father too, and in some of his uncles. I did get Cardiology to come by and they felt he could follow up with them and they did not see any evidence of ongoing cardiac ischemia or coronary insufficiency, so he will follow up with them. He was comfortable and wanted to leave so we discharged him. He needed some metformin. I did give him some Ativan 20 of them, 1 mg, to take p.r.n. panic attacks. I stressed the need for him to find a primary care physician. For financial reasons he has not been doing that. DISCHARGE MEDICATIONS: 1. Lisinopril 20 mg a day. 2. Ativan p.r.n. anxiety. 3. Metformin 500 mg b.i.d.
== END 2016-12-12 15:35 | disposition home or self-care (01) | DRG 313 ==
LOC: ED 22:18 → EDIPHOLD 12-09 03:24 → OBSVTOIN 12-09 03:24 → 4N 12-09 15:28
PROVIDERS: ATTEND Emergency Medicine
DX: R07.89 Other chest pain (principal); I25.2 Old myocardial infarction; E11.40 Type 2 diabetes mellitus with diabetic neuropathy, unspecified; I25.10 Atherosclerotic heart disease of native coronary artery without angina pectoris; I10 Essential (primary) hypertension; Z79.899 Other long term (current) drug therapy; Z79.84 Long term (current) use of oral hypoglycemic drugs; E78.5 Hyperlipidemia, unspecified; R94.5 Abnormal results of liver function studies; Z23 Encounter for immunization; G47.30 Sleep apnea, unspecified; Z87.11 Personal history of peptic ulcer disease; Z87.442 Personal history of urinary calculi; F41.9 Anxiety disorder, unspecified; F32.9 Major depressive disorder, single episode, unspecified; E66.9 Obesity, unspecified; K21.9 Gastro-esophageal reflux disease without esophagitis; K59.00 Constipation, unspecified; F17.220 Nicotine dependence, chewing tobacco, uncomplicated; Z91.128 Patient's intentional underdosing of medication regimen for other reason; Z82.3 Family history of stroke; Z82.49 Family history of ischemic heart disease and other diseases of the circulatory system; Z86.73 Personal history of transient ischemic attack (TIA), and cerebral infarction without residual deficits
CPT/HCPCS: 71010; 76700; 78452; 80048; 80053; 80061; 80074; 82550; 82553; 82948; 83605; 83690; 83735; 83880; 84484; 85025; 85610; 85730; 87040; 90732; 93005; 93017; 93306; 96365; 96366; 96375; 96376; A9500; C9113; J0696; J1940; J2060; J2270; J2405; S0164